=== PATIENT | female | born 1985 | race Two or more races ===

== ENCOUNTER 2017-12-26 19:59 | Emergency (ER) | payer OTHER ==
[~2017-12-26] VITALS: Ht 167.6 cm; Wt 86.2 kg
[2017-12-27] MEDS ORDERED: PEPCID40 MG PO (02:19)
[2017-12-27] MEDS ORDERED: ZOFRAN ODT4 MG PO (02:19)
== END 2017-12-27 02:25 | disposition home or self-care (01) ==
LOC: ER 19:59
DX: O21.0 Mild hyperemesis gravidarum (principal); Z34.81 Encounter for supervision of other normal pregnancy, first trimester

== ENCOUNTER 2018-01-16 11:10 | Emergency (ER) | payer OTHER ==
[~2018-01-16] VITALS: Ht 167.6 cm; Wt 86.2 kg
[~2018-01-16 11:10] MED LIST: PEPCID40 MG PO; ZOFRAN ODT4 MG PO
== END 2018-01-16 14:29 | disposition home or self-care (01) ==
LOC: ER 11:10
DX: O21.0 Mild hyperemesis gravidarum (principal); Z34.01 Encounter for supervision of normal first pregnancy, first trimester

== ENCOUNTER 2018-09-20 16:39 | Emergency (ER) | payer OTHER ==
[~2018-09-20] VITALS: Ht 167.6 cm; Wt 81.6 kg
[2018-09-20] MEDS ORDERED: ZOFRAN ODT4 MG SL (23:55)
[2018-09-20] MEDS ORDERED: PEPCID AC20 MG PO (23:55)
[2018-09-21] MEDS ORDERED: PEPCID AC10 MG (00:59)
== END 2018-09-21 01:30 | disposition home or self-care (01) ==
LOC: ER 16:39
DX: K29.70 Gastritis, unspecified, without bleeding (principal)

== ENCOUNTER 2021-05-07 18:50 | Emergency (ER) | payer OTHER ==
[~2021-05-07] VITALS: Ht 167.6 cm; Wt 99.8 kg
[~2021-05-07 18:50] MED LIST changes: +PEPCID AC10 MG; +PEPCID AC20 MG PO; +ZOFRAN ODT4 MG SL
[2021-05-07] MEDS ORDERED: ECOTRIN (19:18)
[2021-05-07] MEDS ORDERED: VISTARIL25 MG PO (21:55)
== END 2021-05-07 21:57 | disposition home or self-care (01) ==
LOC: ER 18:50
DX: F41.9 Anxiety disorder, unspecified (principal); M94.0 Chondrocostal junction syndrome [Tietze]; R07.9 Chest pain, unspecified

== ENCOUNTER 2024-04-11 11:56 | Emergency (ER) | payer OTHER ==
[~2024-04-11] VITALS: Ht 167.6 cm; Wt 104.3 kg
[~2024-04-11 11:56] MED LIST changes: +ECOTRIN; +VISTARIL25 MG PO
[2024-04-11] MEDS ORDERED: FOLIC ACID20 MG PO (12:13)
[2024-04-11] MEDS ORDERED: ONDANSETRON HCL 2 MG/ML VIAL IV STA (12:31)
[2024-04-11] MEDS ORDERED: 0.9 % SODIUM CHLORIDE 1,000 ML IV STA (12:31)
[2024-04-11 13:29] LABS: HEMATOCRIT 40.9 % (36.0-45.00); MEAN CELL VOLUME 84.8 fL (80.00-100.00); MEAN CORPUSCULAR HGB CONC 34.2 g/dl (32.0-36.0); PLATELET COUNT 225 K/uL (150-450); RED BLOOD COUNT 4.82 M/uL (4.00-6.00); RED CELL DISTRIBUTION WIDTH 12.8 % (11.5-14.5)
[2024-04-11] MEDS ORDERED: FAMOTIDINE/PF 20 MG/2 ML VIAL IV ONE ×2 (13:30→18:30)
[2024-04-11 13:43] LABS: CALCIUM 9.4 mg/dL (8.5-10.1); CREATININE SERUM 0.57 mg/dL (0.55-1.02); GFR 120.01; POTASSIUM 4.05 mEq/L (3.5-5.1)
[2024-04-11 15:34] LABS: PH,URINE 6.5 (5.0-8.0); URINE APPEARANCE Clear; URINE BILIRRUBIN Small (NEGATIVE); URINE BLOOD Negative; URINE COLOR Dark Yellow; URINE GLUCOSE Negative (NEGATIVE); URINE LEUKOCYTE Negative; URINE NITRATE Negative; URINE PROTEIN 30 (NEGATIVE)
[2024-04-11 15:37] LABS: URINE BACTERIA 118.4 uL (0.0-1933); URINE EPITHELIAL CELLS 13.6 uL (0.0-38.8); URINE RBC 18.4 uL (0.0-20.8); URINE WBC 7.7 uL (0.0-23.2)
[2024-04-11 16:15] LABS: URINE CAST 0.91 uL (0.0-1.40); URINE KETONE >=160 (NEGATIVE)
== END 2024-04-11 18:37 | disposition home or self-care (01) ==
LOC: ER 11:58
PROVIDERS: Emergency Medicine
DX: O99.611 Diseases of the digestive system complicating pregnancy, first trimester (principal); Z3A.11 11 weeks gestation of pregnancy; Z88.0 Allergy status to penicillin

== ENCOUNTER 2024-05-02 10:34 | Emergency (ER) | payer OTHER ==
[~2024-05-02] VITALS: Ht 167.6 cm; Wt 97.5 kg
[~2024-05-02 10:34] MED LIST changes: +FOLIC ACID20 MG PO
[2024-05-02] MEDS ORDERED: LACTULOSE 20 G/30 ML BLIST.PACK PO ONE (11:15)
[2024-05-02] MEDS ORDERED: MAGNESIUM HYDROXIDE 400 MG/5 ML ML PO ONE (11:15)
[2024-05-02] MEDS ORDERED: MINERAL OIL 30 ML BLIST.PACK PO ONE (11:15)
== END 2024-05-02 16:19 | disposition home or self-care (01) ==
LOC: ER 10:36
DX: O99.612 Diseases of the digestive system complicating pregnancy, second trimester (principal); K92.89 Other specified diseases of the digestive system; Z3A.14 14 weeks gestation of pregnancy; K59.00 Constipation, unspecified; Z88.0 Allergy status to penicillin

== ENCOUNTER 2025-05-13 01:15 | Inpatient (IN) | payer OTHER ==
[~2025-05-13] VITALS: Ht 167.6 cm; Wt 93.0 kg
--- NOTE | 2025-05-13 01:33 | NUR ---
SE DOC HAASE AL
--- NOTE | 2025-05-13 01:34 | NUR ---
SE RECIBE PTE ALERTA Y ORIENTADA X3 EN AMBULANCIA CUAL REFIERE PRESENTA VOMITOS X5, DIARREAS X4, DEBILIDAD Y PALPITACIONES JM LA NOCHE DE HOY. PARAMEDICO VERBALIZA ADMINISTRARON AMIODARONE 150MG, ZOFRAN 4MG, PROTONIX 40MG IV 12:25AM. SE [place] S/V, SE REALIZA EKG, SE PRESENTA Y UBICA.
[2025-05-13] MEDS ORDERED: 0.9 % SODIUM CHLORIDE 1,000 ML IV STA (01:35)
--- NOTE | 2025-05-13 03:16 | NUR ---
SE ORIENTA A PTE SOBRE TX MEDICO ORDENADO POR . SE REALIZA BAIRON DE MUESTRAS DE LAB ELIAN ORDEN MEDICA Y BAJO MEDIDAS ASEPTICAS. VENOPUNCION PATENTE BARRON DE EDEMA Y ERITEMA BAJANDO IV FLUIDS POR REGULADOR. SE CONECTA A MONITOR CARDIACO Y OXIMETRIA DE PULSO. PTE PENDIENTE A RESULTADOS DE LAB.
[2025-05-13 03:33] LABS: COVID-19 AG NEGATIVE (NEGATIVE)
[2025-05-13 04:01] LABS: BASO % 0.3 % (0.1-1.2); EOS # 0.02 (0.04-0.54); EOS % 0.2 % (0.7-7.0); LYMPH # 0.34 (1.18-3.74); LYMPH % 3.1 % (19.3-53.1); MEAN PLATELET VOLUME 10.60 fl (9.4-12.4); MONO # 0.29 (0.24-0.82); MONO % 2.6 % (4.7-12.5); NEUT # 10.33 (1.56-6.13); NEUT % 93.4 % (34.0-71.1); RED CELL DISTRIBUTION WIDTH 12.5 % (11.6-14.4)
[2025-05-13 04:07] LABS: ALT/SGPT 25.0 U/L (12-78); AST/SGOT 13.0 U/L (15-37); BILIRUBIN TOTAL 1.2 mg/dL (0.3-1.2); BUN CREA RATIO 23.0 (7.0-25.0); CREATININE SERUM 0.78 mg/dL (0.55-1.02); GFR 83.1; GLOBULINA 3.8 G/DL (2.4-3.5); GLUCOSE FASTING 168.0 mg/dL (65-100); OSMOLALITY SERUM 291.0 MOSM/KG (275-295)
[2025-05-13 04:58] LABS: ERYTHROCYTE SEDIMENTATION RATE 13 mm/hr (0-20)
[2025-05-13 05:53] LABS: INR 1.1
[2025-05-13] MEDS ORDERED: ENOXAPARIN SODIUM 80 MG/0.8 ML SYRINGE SUBCUTANEO STA (05:59)
[2025-05-13] MEDS ORDERED: ATORVASTATIN CALCIUM 40 MG TABLET PO STA (05:59)
[2025-05-13] MEDS ORDERED: ACETAMINOPHEN 500 MG GEL..CAP PO PRN ×2 (06:00→08:45)
[2025-05-13] MEDS ORDERED: ONDANSETRON HCL 2 MG/ML VIAL IV STA (06:00)
[2025-05-13] MEDS ORDERED: ASPIRIN 325 MG TABLET PO STA (06:00)
[2025-05-13] MEDS ORDERED: 0.9 % SODIUM CHLORIDE 1,000 ML IV SCH (06:00)
[2025-05-13] MEDS ORDERED: NITROGLYCERIN IN 5 % DEXTROSE 50 MG/250 ML BOTTLE IV ONE (06:04)
[2025-05-13] MEDS ORDERED: ONDANSETRON HCL 2 MG/ML VIAL ONE (06:04)
[2025-05-13] MEDS ORDERED: NITROGLYCERIN IN 5 % DEXTROSE 250 ML IV SCH (06:15)
[2025-05-13 06:26] LABS: D DIMER 0.2 MG/L
[2025-05-13 06:53] LABS: URINE APPEARANCE Cloudy; URINE BILIRRUBIN Negative (NEGATIVE); URINE BLOOD Negative; URINE COLOR Dark Yellow; URINE GLUCOSE Negative (NEGATIVE); URINE LEUKOCYTE Trace; URINE NITRATE Negative; URINE PROTEIN 30 (NEGATIVE); URINE UROBILINOGEN 1.0 E.U./dl
[2025-05-13 06:56] LABS: URINE BACTERIA 676.7 uL (0.0-1933); URINE CAST 4.83 uL (0.0-1.40); URINE EPITHELIAL CELLS 61.0 uL (0.0-38.8); URINE RBC 13.1 uL (0.0-20.8); URINE WBC 10.3 uL (0.0-23.2)
[2025-05-13 07:23] LABS: URINE KETONE 80 (NEGATIVE)
[2025-05-13 07:29] LABS: URINE CRYSTALS FEW /HPF
--- NOTE | 2025-05-13 07:31 | NUR ---
SE RECIBE PACIENTE ALERTA Y ORIENTADA X3 EN CAMA CON BARANDAS ELEVADAS Y EN READ NIVEL MAS BAJO POR PRECAUCION A CAIDAS Y CONECTADA A MONITOR CARDIACO Y OXIMETRIA DE PULSO CONTINUA, SE OBSERVA CON BUEN PATRON RESPIRATORIO A ROOM AIR, PACIETE CON EXTREMIDADAES SUPERIORES PRESTNES, LIBRES DE EDEMA Y PREVIAMENTE CANALIZADA EN MANO DERECHA CON ANGIO #20 EL CUAL SE ENCUENTRA PATENTE, BARRON DE EDEMA Y ERITEMA. RECIBIENDO DRIP DE TRIDIL A 2ML/HR Y 0.9%NSS ELIAN ORDEN. PACIENTE CON ABDOMEN BLANDO, ORINANDO EXPONTANEO Y EXTREMIDADES INFERIORES LIBRES DE EDEMA. SE LE ORIENTA SOBRE CONTINUIDAD DE TRATAMIENTO Y REFIERE ENTENDER, SE LE COLOCA TIMBRE ACCESIBLE SE MANTIENE BAJO OBSERVACION EN ESPERA DE CONSULTA CON DR NASH.
[2025-05-13] MEDS ORDERED: RINGERS SOLUTION,LACTATED 1,000 ML IV SCH (08:45)
[2025-05-13] MEDS ORDERED: ONDANSETRON HCL 2 MG/ML VIAL IV PRN (08:45)
[2025-05-13] MEDS ORDERED: METOPROLOL SUCCINATE 50 MG TAB.SR.24H PO SCH (09:00)
[2025-05-13] MEDS ORDERED: PANTOPRAZOLE SODIUM 40 MG/VIAL VIAL IV SCH (09:00)
[2025-05-13] MEDS ORDERED: METOPROLOL SUCCINATE 25 MG TAB.SR.24H PO SCH (09:00)
[2025-05-13 09:40] VITALS: BP 104/59; O2SAT 97
[2025-05-13] MEDS ORDERED: ACETAMINOPHEN 500 MG GEL..CAP PO ONE (14:09)
[2025-05-13 15:00] VITALS: BP 87/54; O2SAT 99
[2025-05-13] MEDS ORDERED: DOCUSATE SODIUM 100MG CAP PO SCH (21:00)
[2025-05-14 02:54] VITALS: BP 111/76; O2SAT 98
[2025-05-14 10:23] VITALS: BP 125/71; O2SAT 98
[2025-05-14] MEDS ORDERED: PROTONIX40 MG PO (13:01)
== END 2025-05-14 15:05 | disposition home or self-care (01) | DRG 310 ==
LOC: ER 01:15 → MEDJ 08:49 → SEC-K 14:14 → MEDJ 16:00
PROVIDERS: Physician Assistant Medical; ADMIT Internal Medicine; ATTEND Internal Medicine
PROC: 4A033R1 Measurement of Arterial Saturation, Peripheral, Percutaneous Approach (ICD-10-PCS; principal; 2025-05-13)
PROC: BB24YZZ Computerized Tomography (CT Scan) of Bilateral Lungs using Other Contrast (ICD-10-PCS; 2025-05-13)
PROC: BW41ZZZ Ultrasonography of Abdomen and Pelvis (ICD-10-PCS; 2025-05-13)
PROC: B54DZZZ Ultrasonography of Bilateral Lower Extremity Veins (ICD-10-PCS; 2025-05-13)
PROC: B246ZZZ Ultrasonography of Right and Left Heart (ICD-10-PCS; 2025-05-13)
PROC: 4A12X4Z Monitoring of Cardiac Electrical Activity, External Approach (ICD-10-PCS; 2025-05-13)
DX: I48.91 Unspecified atrial fibrillation (principal); R00.2 Palpitations; B34.9 Viral infection, unspecified; E86.0 Dehydration